=== PATIENT | male | born 1950 | race Caucasian/White ===

== ENCOUNTER 2021-10-06 11:27 | Observation (INO) ==
[2021-10-06 11:39] VITALS: TEMP 98.2
[2021-10-06 12:17] LABS: Bilirubin,Urine Negative (Negative); Blood,Urine Negative (Negative); Clarity,Urine Clear (Clear); Color,Urine Light-Yellow (Yellow); Glucose,Urine (UA) >=1000 mg/dL (Normal); Ketones,Urine Negative (Negative); Leukocyte Esterase,Urine Negative (Negative); Mucus,Urine Few per lpf (None-Few); Nitrite,Urine Negative (Negative); PH,Urine 5.5 pH Units (5.0-8.0); Protein,Urine Negative (Neg-Trace); RBC,Urine 0-3 per hpf (0-3); Specific Gravity,Urine > 1.030 (1.010-1.025); Squamous Epithelial Cell,Urine Few per hpf (None-Few); Urobilinogen,Urine Normal (Normal); WBC,Urine 0-3 per hpf (0-3)
[2021-10-06 12:22] LABS: Basophils % 0.1 %; Eosinophils # 0.3 K/mcL (0.0-0.6); Eosinophils % 3.2 %; Hematocrit 43.7 % (37.5-50.1); Hemoglobin 14.2 g/dL (12.9-16.9); Immature Granulocytes % 0.4 % (0-4); Lymphocytes # 1.2 K/mcL (0.6-4.6); Lymphocytes % 13.6 %; Mean Corpuscular HGB Conc 32.5 g/dL (31.6-35.5); Mean Corpuscular Volume 92.4 fL (83.0-100.0); Mean Platelet Volume 10.3 fL (9.4-12.4); Monocytes # 0.8 K/mcL (0.0-1.3); Monocytes % 8.3 %; Neutrophils # 6.8 K/mcL (1.6-8.9); Platelet Count 241 K/mcL (140-400); Red Blood Count 4.73 M/mcL (4.19-5.50); Red Cell Distribution Width 13.4 % (11.5-14.5); Segmented Neutrophils % 74.4 %; White Blood Count 9.1 K/mcL (4.3-11.1)
[2021-10-06 12:42] LABS: Calcium 9.2 mg/dL (8.6-10.3)
[2021-10-06] MEDS ORDERED: Iopamidol - 370 500 ML MLS IVP ONE (12:48)
[2021-10-06] MEDS ORDERED: Ondansetron 4 MG/2 ML VIAL IVP PRN (16:25)
[2021-10-06] MEDS ORDERED: Acetaminophen 325 MG TABLET PO PRN (16:25)
[2021-10-06] MEDS ORDERED: Melatonin 3 MG TABLET PO PRN (16:25)
[2021-10-06] MEDS ORDERED: 0.9 % Sodium Chloride 1,000 ML IVC ONE (16:30)
[2021-10-06] MEDS: Aspirin 81 MG TAB.CHEW PO SCH (17:28)
[2021-10-06 20:32] LABS: Influenza A PCR Negative (Negative); Influenza B PCR Negative (Negative); Resp. Syncytial Virus PCR Negative (Negative)
[2021-10-06 20:33] LABS: SARS-CoV-2 by PCR (In House) Negative (Negative)
[2021-10-07 06:42] LABS: BUN/Creatinine Ratio 16 (6-26); Blood Urea Nitrogen 22 mg/dL (8-23); Calcium 8.8 mg/dL (8.6-10.3); Carbon Dioxide 23 mEq/L (23-29); Chloride 109 mEq/L (98-107); Chol/HDL Ratio 3.4 (0-4.9); Cholesterol 110 mg/dL (< 200); Glucose 140 mg/dL (70-105); HDL Cholesterol 32 mg/dL (40-59); LDL Cholesterol,Calculated 57 mg/dL (< 100); Osmolality,Calculated 296 (280-300); Phosphorous 3.5 mg/dL (2.7-4.5); Potassium 4.6 mEq/L (3.5-5.1); Sodium 140 mEq/L (136-145); Triglycerides 106 mg/dL (< 150); eGFR For African Americans > 60 (> 60); eGFR For Non-African Americans 50 (> 60)
[2021-10-07 07:54] VITALS: BP 179/95; PULSE 95; O2SAT 99
[2021-10-07] MEDS: Aspirin 81 MG TAB.CHEW PO SCH (08:28)
[2021-10-07 09:57] LABS: Estimated Average Glucose 157 mg/dl; Hemoglobin A1C 7.1 %
== END 2021-10-07 10:27 | disposition home or self-care (01) ==
LOC: EMEROOARM 11:27 → 3BNU 11:27
PROVIDERS: ADMIT Internal Medicine; ATTEND Internal Medicine